=== PATIENT | female | born 1965 | race Caucasian/White ===

== ENCOUNTER → 2016-12-02 | Outpatient (CLI) | payer OTHER ==
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
--- NOTE | 2016-12-03 08:14 | RAD ---
MRI Lumbar Spine without contrast History: Low back pain with right thigh numbness Technique: Multiplanar, multi sequential noncontrast MR imaging was performed of the lumbar spine. Contrast: None Comparison: None Findings: Lumbar vertebral body stature and AP alignment are preserved. Intervertebral disc spaces are overall preserved, mild disc desiccation L2-3 through L4-5. Conus terminates at L2. There is no significant focal marrow edema. L1-L2: Neural foramina and spinal canal are adequate. L2-L3: Spinal canal and the neural foramina are adequate. There is mild facet degenerative change. L3-L4: There is mild facet degenerative change and buckling of the ligamentum flavum greater on the right. There is very mild posterior narrowing of the right neural foramen, left neural foramen and spinal canal adequate. L4-L5: There is mild/moderate buckling of the ligamentum flavum and mild facet degenerative change greater on the right. There is very mild narrowing of the far lateral recesses greater on the left. There is mild narrowing of the right neural foramen, left neural foramen adequate. There is a very shallow protrusion in the right extraforaminal region without significant displacement of the extraforaminal right L4 nerve root. L5-S1: Spinal canal and the neural foramina are adequate. There is [id number] right facet hypertrophic change. Impression: 1. There is no significant lumbar spinal stenosis. There is mild narrowing of the right L3-4 and L4-5 neural foramina. Electronically signed by: Damián White MD (12/03/2016 8:10 AM)
== END | disposition home or self-care (01) ==
LOC: MRI 15:10
PROVIDERS: ATTEND Family Medicine
DX: M48.02 Spinal stenosis, cervical region (principal); M54.5 Low back pain; M62.40 Contracture of muscle, unspecified site; V89.2XXD Person injured in unspecified motor-vehicle accident, traffic, subsequent encounter
CPT/HCPCS: 72141; 72148